=== PATIENT | female | born 1950 | race Caucasian/White ===

== ENCOUNTER 2018-02-25 13:54 | Outpatient (RCR) | payer MEDICARE, BC ==
[~2018-02-25 13:54] MED LIST: AMOX-358 PO; BENA1TAB12 PO; BENZ-36 PO; LANS30CA PO; PRD10T PO
[2018-02-25 14:38] LABS: BASOPHILS % (AUTO) 1 % (0-10); EOSINOPHILS # (AUTO) 0.4 10^3/uL (0.0-0.3); EOSINOPHILS % (AUTO) 6 % (0-10); HEMATOCRIT 44 % (35-52); HEMOGLOBIN 14.7 G/DL (11.5-16.0); LYMPHOCYTES # (AUTO) 1.9 X 10^3 (1.0-4.0); LYMPHOCYTES % (AUTO) 30 % (12-44); MEAN CORPUSCULAR HEMOGLOBIN 28 PG (25-34); MEAN CORPUSCULAR HGB CONC 34 G/DL (32-36); MEAN CORPUSCULAR VOLUME 85 FL (80-99); MEAN PLATELET VOLUME 10.8 FL (7.4-10.4); MONOCYTES # (AUTO) 0.6 X 10^3 (0.0-1.0); MONOCYTES % (AUTO) 10 % (0-12); NEUTROPHILS # (AUTO) 3.4 X 10^3 (1.8-7.8); NEUTROPHILS % (AUTO) 53 % (42-75); PLATELET COUNT 245 10^3/uL (130-400); RED BLOOD COUNT 5.18 10^6/uL (4.35-5.85); RED CELL DISTRIBUTION WIDTH 14.4 % (10.0-14.5); WHITE BLOOD COUNT 6.5 10^3/uL (4.3-11.0)
[2018-02-25 15:02] LABS: ALBUMIN 4.3 GM/DL (3.2-4.5); BILIRUBIN,TOTAL 0.3 MG/DL (0.1-1.0); CALCIUM 9.9 MG/DL (8.5-10.1); CREATININE SERUM 0.94 MG/DL (0.60-1.30); POTASSIUM 3.7 MMOL/L (3.6-5.0); TOTAL PROTEIN 7.5 GM/DL (6.4-8.2)
== END 2018-05-26 | disposition home or self-care (01) ==
LOC: ONC 13:54
PROVIDERS: ATTEND Internal Medicine Hematology & Oncology
DX: R79.89 Other specified abnormal findings of blood chemistry (principal); K21.9 Gastro-esophageal reflux disease without esophagitis; H01.12 Discoid lupus erythematosus of eyelid; I10 Essential (primary) hypertension; F41.9 Anxiety disorder, unspecified
CPT/HCPCS: 36415; 80053; 85025

== ENCOUNTER 2018-06-29 11:08 | Emergency (ER) | payer MEDICARE, BC ==
[~2018-06-29] VITALS: Ht 149.9 cm; Wt 68.5 kg
--- OUTSIDE RECORDS SUMMARY | 2018-06-29 11:13 | XMS REPORT | Continuity of Care Document ---
Author Author [facility] Organization [facility] Address Unknown Phone Unavailable Allergies Active Description Code Type Severity Reaction Onset Reported/Identified Relationship to Patient Clinical Status Yes HORMONES HORMONES Unknown BLOOD PRESSURE 01/25/2012 Yes Sulfa (Sulfonamide Antibiotics) [id number] Drug Allergy Unknown N/A 2011 Medications There is no data. 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, 04/09/2018 VICKI ALLAN MD Ot I10 ESSENTIAL (PRIMARY) HYPERTENSION 04/09/2018 VICKI ALLAN MD Ot K21.9 GASTRO-ESOPHAGEAL REFLUX DISEASE WITHOUT 04/09/2018 VICKI ALLAN MD Ot R79.89 OTHER SPECIFIED ABNORMAL FINDINGS OF BLO 05/26/2018 VICKI ALLAN MD Ot F41.9 ANXIETY DISORDER, UNSPECIFIED 05/26/2018 VICKI ALLAN MD Ot 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, 05/26/2018 VICKI ALLAN MD Ot I10 ESSENTIAL (PRIMARY) HYPERTENSION 05/26/2018 VICKI ALLAN MD Ot K21.9 GASTRO-ESOPHAGEAL REFLUX DISEASE WITHOUT 05/26/2018 VICKI ALLAN MD Ot R79.89 OTHER SPECIFIED ABNORMAL FINDINGS OF BLO 05/28/2018 VICKI ALLAN MD, Ot F41.9 ANXIETY DISORDER, UNSPECIFIED 05/28/2018 VICKI ALLAN MD, Ot 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 Results There is no data. Encounters ACCT No. Visit Date/Time Discharge Status Pt. Type Provider Facility Loc./Unit Complaint [id number] 05/27/2018 00:10:00 05/27/2018 23:59:59 CLS Preadmit VICKI ALLAN MD [facility] ONC [id number] 02/25/2018 13:54:00 05/26/2018 00:01:00 DIS Outpatient VICKI ALLAN MD [facility] ONC [id number] 10/12/2015 20:50:00 10/12/2015 22:59:00 DIS Emergency HARMONY FU DO [facility] ER [id number] 02/15/2012 13:49:00 Document Registration [id number] 01/25/2012 22:08:00 Document Registration
[2018-06-29] MEDS ORDERED: BENA1TAB14 (11:34)
[2018-06-29] MEDS ORDERED: ALPR0.5T7 (11:34)
--- NOTE | 2018-06-29 11:36 | ED EENT ---
History of Present Illness General Chief Complaint: Oral/Throat Problems Stated Complaint: LEFT SIDE MOUTH PAIN Source: patient Exam Limitations: no limitations History of Present Illness Date Seen by Provider: Jun 29, 2018 Time Seen by Provider: 11:34 Initial Comments To ER with reports of left-sided mouth pain this began intermittently a few weeks ago. No fevers or chills. She was initially seen at urgent care who believe this to be a swollen lymph node and she was given a shot of steroids. No improvement so she followed up with her primary care provider Dr. Becker who told her she likely had a salivary gland stone, told her to massage the area and gave another shot of steroids she states, this was on 06/27/18. Today, the pain has increased to an 8 or 9 out of 10. She denies any fevers or chills. States that the pain and swelling increases with eating Timing/Duration: abrupt Severity: moderate Location: mouth, facial Allergies and Home Medications Allergies Coded Allergies: Sulfa (Sulfonamide Antibiotics) (Verified Allergy, Unknown, 01/25/12) Uncoded Allergies: HORMONES (Allergy, Unknown, BLOOD PRESSURE GOES CRAZY, 01/25/12) Home Medications Benazepril Hcl 1 Each Tablet, 1 EACH PO DAILY, (Reported) Benzonatate 100 Mg Capsule, 100 MG PO TID PRN for COUGH, (Reported) Clindamycin HCl 300 Mg Capsule, 300 MG PO TID Prescribed by: FIDENCIO DUQUE on 06/29/18 1227 Hydrocodone/Acetaminophen 1 Each Tablet, 1 EACH PO Q4H PRN for PAIN-MODERATE TO SEVERE Prescribed by: FIDENCIO DQUUE on 06/29/18 1227 Patient Home Medication List Home Medication List Reviewed: Yes Review of Systems Constitutional: see HPI Eyes: No Symptoms Reported Ears: No Symptoms Reported Nose: no symptoms reported Mouth: see HPI, pain, swelling Throat: no symptoms reported Respiratory: no symptoms reported Cardiovascular: no symptoms reported Musculoskeletal: no symptoms reported Skin: no symptoms reported Neurological: No Symptoms Reported Hematologic/Lymphatic: No Symptoms Reported Immunological/Allergic: no symptoms reported Past Uczvguw-Vwuxsj-Raohnn Hx Patient Social History Alcohol Use: Denies Use Recreational Drug Use: No Smoking Status: Never a Smoker Recent Foreign Travel: No Contact w/Someone Who Travel: No Immunizations Up To Date Date of Influenza Vaccine: Sep 21, 2015 Past Medical History Surgeries: Yes Gallbladder, Tubal Ligation Respiratory: No Cardiac: Yes Hypertension 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 oz. 67.235265sj; BMI Method: General Appearance: WD/WN, no apparent distress Eyes: bilateral eye normal inspection, bilateral eye PERRL Ears: bilateral ear auricle normal, bilateral ear canal normal Mouth/Throat: other (left-sided submandibular swelling, inflamed appearance of the left [place]'s duct and a palpable firm nodule just proximal to the [place]' s duct. In milking this gland I was able to express some purulent material. ) Neck: non-tender, full range of motion Respiratory: no respiratory distress, no accessory muscle use Neurologic/Psychiatric: alert, normal mood/affect, oriented x 3 Skin: normal color, warm/dry Progress/Results/Core Measures Results/Orders Lab Results Laboratory Tests Test 06/29/18 12:00 Range/Units White Blood Count 13.0 H 4.3-11.0 10^3/uL Red Blood Count 5.35 4.35-5.85 10^6/uL Hemoglobin 15.2 11.5-16.0 G/DL Hematocrit 45 35-52 % Mean Corpuscular Volume 84 80-99 FL Mean Corpuscular Hemoglobin 28 25-34 PG Mean Corpuscular Hemoglobin Concent 34 32-36 G/DL Red Cell Distribution Width 14.6 H 10.0-14.5 % Platelet Count 310 130-400 10^3/uL Mean Platelet Volume 10.4 7.4-10.4 FL Neutrophils (%) (Auto) 76 H 42-75 % Lymphocytes (%) (Auto) 16 12-44 % Monocytes (%) (Auto) 7 0-12 % Eosinophils (%) (Auto) 1 0-10 % Basophils (%) (Auto) 0 0-10 % Neutrophils # (Auto) 9.9 H 1.8-7.8 X 10^3 Lymphocytes # (Auto) 2.1 1.0-4.0 X 10^3 Monocytes # (Auto) 0.9 0.0-1.0 X 10^3 Eosinophils # (Auto) 0.1 0.0-0.3 10^3/uL Basophils # (Auto) 0.0 0.0-0.1 10^3/uL Sodium Level 137 135-145 MMOL/L Potassium Level 3.8 3.6-5.0 MMOL/L Chloride Level 103 98-107 MMOL/L Carbon Dioxide Level 21 21-32 MMOL/L Anion Gap 13 5-14 MMOL/L Blood Urea Nitrogen 21 H 7-18 MG/DL Creatinine 0.92 0.60-1.30 MG/DL Estimat Glomerular Filtration Rate > 60 BUN/Creatinine Ratio 23 Glucose Level 126 H 70-105 MG/DL Calcium Level 9.7 8.5-10.1 MG/DL My Orders Orders - FIDENCIO DUQUE APRN Cbc With Automated Diff (06/29/18 11:33) Basic Metabolic Panel (06/29/18 11:33) Iv Heplock-Insert (Order) (06/29/18 11:33) Ct Neck (Soft Tissue) W (06/29/18 11:33) Clindamycin 900 Mg/50 Ml Ivpb (Cleocin P (06/29/18 11:45) Fentanyl Injection (Sublimaze Injection (06/29/18 11:45) Iohexol Injection (Omnipaque 350 Mg/Ml 1 (06/29/18 12:00) Ns (Ivpb) (Sodium Chloride 0.9% Ivpb Bag (06/29/18 12:00) Fentanyl Injection (Sublimaze Injection (06/29/18 13:30) Medications Given in ED Current Medications Medications Dose Ordered Sig/Mickey Route Start Time Stop Time Status Last Admin Dose Admin Clindamycin Phosphate/Dextrose 50 ml @ 100 mls/hr ONCE ONCE IV 06/29/18 11:45 06/29/18 12:14 DC 06/29/18 12:07 100 MLS/HR Fentanyl Citrate 50 mcg ONCE ONCE IVP 06/29/18 11:45 06/29/18 11:46 DC 06/29/18 11:59 50 MCG Fentanyl Citrate 50 mcg ONCE ONCE IVP 06/29/18 13:30 06/29/18 13:31 DC 06/29/18 13:30 50 MCG Iohexol 75 ml ONCE ONCE IV 8/11/18 12:00 06/29/18 12:01 DC 06/29/18 13:00 75 ML Sodium Chloride 100 ml ONCE ONCE IV 06/29/18 12:00 06/29/18 12:01 DC 06/29/18 13:01 100 ML Vital Signs/I&O 06/29/18 11:18 Temp 98.4 Pulse 69 Resp 18 B/P (MAP) 176/82 (113) Pulse Ox 98 O2 Delivery Room Air Diagnostic Imaging Diagonstic Imaging: CT Comments NAME: LORRI LYON [facility] REC#: [id number] PT STATUS: REG ER : 1950 PHYSICIAN: FIDENCIO DUQUE APRN ADMIT DATE: 06/29/18/ER Draft Date of Exam:06/29/18 CT NECK (SOFT TISSUE) W PROCEDURE: CT neck soft tissue with contrast. TECHNIQUE: Multiple contiguous axial images were obtained through the neck after the administration of contrast. INDICATION: Neck mass, possible sialolith. COMPARISON: None. FINDINGS: The marker was placed in the left lateral anterior neck in the area of interest. A marker overlies asymmetrically slightly larger left submandibular gland. This could be related to a slight inflammation. The right submandibular gland is normal. There is a sialolith in the anterior aspect of the floor of the mouth on the left measuring 5 mm. There is resultant dilation of the left sublingual duct. No additional abnormalities seen. Vascular structures, skull base anatomy and lung apices are normal. The sinuses are clear. Central airways normal. Impression: 5 mm sialolith in the anterior aspect of the floor of the mouth with resultant dilated salivary duct and and prominence and enlargement of the left submandibular gland compared to the right. No abscess or neoplasm identified. Dictated on workstation # [id number] Dict: 06/29/18 1311 Trans: 06/29/18 1323 [facility] [id number] Interpreted by: EDUAR LARKIN Electronically signed by: Departure Communication (Admissions) I spoke with Dudley CUEVA, nurse practitioner with Dr. Lyon from ear nose and throat. She agrees with clindamycin outpatient pain medication, plenty of fluids and lemon drops. They'll see her in the office next week. I didn't notice it today Impression Primary Impression: Sialoadenitis of submandibular gland Disposition: HOME, SELF-CARE Condition: Stable Departure-Patient Inst. Decision time for Depature: 12:25 Referrals: KARY LYON MD, MARK D MD (PCP/Family) Primary Care Physician Patient Instructions: Salivary Gland Infection (DC) Add. Discharge Instructions: 1. REturn to ER for any intolerable pain, fevers or other concerns 2. Call Dr Lyon sunday to make an appointment to be seen, preferrably next week All discharge instructions reviewed with patient and/or family. Voiced understanding. Scripts Hydrocodone/Acetaminophen ([place] 5-325 Tablet) 1 Each Tablet 1 EACH PO Q4H PRN for PAIN-MODERATE TO SEVERE, #14 TAB Prov: FIDENCIO DUQUE APRN 06/29/18 Clindamycin HCl (Clindamycin HCl) 300 Mg Capsule 300 MG PO TID, #21 CAP Prov: FIDENCIO DUQUE APRN 06/29/18 Copy Copies To 1: KARY LYON MD; IRENA BECKER MD, PETER J APRN Jun 29, 2018 11:36
[2018-06-29] MEDS ORDERED: fentaNYL INJECTION 100 MCG/2 ML AMP IVP ONE ×2 (11:45→13:30)
[2018-06-29] MEDS ORDERED: CLINDAMYCIN 900 MG/50 ML IVPB 50 ML IV ONE (11:45)
[2018-06-29] MEDS ORDERED: NS 100 ML (IVPB) BAG IV ONE (12:00)
[2018-06-29] MEDS ORDERED: IOHEXOL 350 MG/ML 100 ML (OMNIPAQUE 350) VIAL IV ONE (12:00)
[2018-06-29 12:09] LABS: BASOPHILS % (AUTO) 0 % (0-10); EOSINOPHILS # (AUTO) 0.1 10^3/uL (0.0-0.3); EOSINOPHILS % (AUTO) 1 % (0-10); HEMATOCRIT 45 % (35-52); HEMOGLOBIN 15.2 G/DL (11.5-16.0); LYMPHOCYTES # (AUTO) 2.1 X 10^3 (1.0-4.0); LYMPHOCYTES % (AUTO) 16 % (12-44); MEAN CORPUSCULAR HEMOGLOBIN 28 PG (25-34); MEAN CORPUSCULAR HGB CONC 34 G/DL (32-36); MEAN CORPUSCULAR VOLUME 84 FL (80-99); MEAN PLATELET VOLUME 10.4 FL (7.4-10.4); MONOCYTES # (AUTO) 0.9 X 10^3 (0.0-1.0); MONOCYTES % (AUTO) 7 % (0-12); NEUTROPHILS # (AUTO) 9.9 X 10^3 (1.8-7.8); NEUTROPHILS % (AUTO) 76 % (42-75); PLATELET COUNT 310 10^3/uL (130-400); RED BLOOD COUNT 5.35 10^6/uL (4.35-5.85); RED CELL DISTRIBUTION WIDTH 14.6 % (10.0-14.5)
[2018-06-29 12:24] LABS: BUN/CREATININE RATIO 23; CALCIUM 9.7 MG/DL (8.5-10.1); CARBON DIOXIDE 21 MMOL/L (21-32); CHLORIDE 103 MMOL/L (98-107); CREATININE SERUM 0.92 MG/DL (0.60-1.30); GFR ESTIMATED > 60; GLUCOSE 126 MG/DL (70-105); POTASSIUM 3.8 MMOL/L (3.6-5.0); SODIUM 137 MMOL/L (135-145)
[2018-06-29] MEDS ORDERED: CLIN300C11 PO (12:27)
[2018-06-29] MEDS ORDERED: HYDR-757 PO (12:27)
--- NOTE | 2018-06-29 13:24 | Diagnostic Imaging Report ---
PROCEDURE: CT neck soft tissue with contrast. TECHNIQUE: Multiple contiguous axial images were obtained through the neck after the administration of contrast. INDICATION: Neck mass, possible sialolith. COMPARISON: None. FINDINGS: The marker was placed in the left lateral anterior neck in the area of interest. A marker overlies asymmetrically slightly larger left submandibular gland. This could be related to a slight inflammation. The right submandibular gland is normal. There is a sialolith in the anterior aspect of the floor of the mouth on the left measuring 5 mm. There is resultant dilation of the left sublingual duct. No additional abnormalities seen. Vascular structures, skull base anatomy and lung apices are normal. The sinuses are clear. Central airways normal. Impression: 5 mm sialolith in the anterior aspect of the floor of the mouth with resultant dilated salivary duct and and prominence and enlargement of the left submandibular gland compared to the right. No abscess or neoplasm identified. Dictated by: Dictated on workstation # [id number]
[2018-06-29 13:47] VITALS: BP 143/62
== END 2018-06-29 13:47 | disposition home or self-care (01) ==
LOC: EDUNIT# 11:08 → ER 11:10
DX: K11.20 Sialoadenitis, unspecified (principal); I10 Essential (primary) hypertension; K21.9 Gastro-esophageal reflux disease without esophagitis; Z88.2 Allergy status to sulfonamides; Z88.8 Allergy status to other drugs, medicaments and biological substances; Z98.51 Tubal ligation status
CPT/HCPCS: 36415; 70491; 80048; 85025; 96365; 96375; 96376; 99282

== ENCOUNTER 2019-09-09 08:00 | Outpatient (RCR) | payer MEDICARE, BC ==
[~2019-09-09 08:00] MED LIST changes: +ALPR0.5T7 PO; +BENA1TAB14; +BIFI1CAP PO; +CALC-823 PO; +CEFU250T80 PO; +CLIN300C11 PO; +HYDR-3812 PO; +HYDR-4226 PO; +NF-MAG64T PO; +OMEP20TA7 PO
== END 2019-09-10 | disposition home or self-care (01) ==
LOC: CR3 08:00
PROVIDERS: ATTEND Internal Medicine
DX: Z29.8 Encounter for other specified prophylactic measures (principal)

== ENCOUNTER 2019-10-08 08:27 | Outpatient (RCR) | payer MEDICARE, BC | END 2019-10-15 | disposition home or self-care (01) | LOC: CR3 08:27 | PROVIDERS: ATTEND Internal Medicine | DX: Z29.8 Encounter for other specified prophylactic measures (principal) ==

== ENCOUNTER 2019-11-05 10:58 | Outpatient (RCR) | payer MEDICARE, BC | END 2019-11-19 | disposition home or self-care (01) | LOC: CR3 10:58 | PROVIDERS: ATTEND Internal Medicine | DX: Z29.8 Encounter for other specified prophylactic measures (principal) ==

== ENCOUNTER 2019-12-03 08:25 | Outpatient (RCR) | payer MEDICARE, BC | END 2019-12-18 | disposition home or self-care (01) | LOC: CR3 08:25 | PROVIDERS: ATTEND Internal Medicine | DX: Z29.8 Encounter for other specified prophylactic measures (principal) ==

== ENCOUNTER 2020-01-21 10:28 | Outpatient (RCR) | payer MEDICARE, BC ==
[~2020-01-21 10:28] MED LIST changes: +ACHD5005 PO; -HYDR-3812 PO
== END 2020-01-22 | disposition home or self-care (01) ==
LOC: CR3 10:28
PROVIDERS: ATTEND Internal Medicine
DX: Z29.8 Encounter for other specified prophylactic measures (principal)

== ENCOUNTER 2020-01-30 09:26 | Outpatient (RCR) | payer MEDICARE, BC | END 2020-02-22 | disposition home or self-care (01) | LOC: CR3 09:26 | PROVIDERS: ATTEND Internal Medicine | DX: Z29.8 Encounter for other specified prophylactic measures (principal) ==

== ENCOUNTER 2021-02-28 09:09 | Outpatient (RCR) | payer MEDICARE, BC ==
[~2021-02-28 09:09] MED LIST changes: -CLIN300C11 PO; +CLIN300C12 PO
== END 2021-03-02 | disposition home or self-care (01) ==
LOC: CR3 09:09
PROVIDERS: ATTEND Internal Medicine
DX: Z29.8 Encounter for other specified prophylactic measures (principal)

== ENCOUNTER 2021-03-18 09:09 | Outpatient (RCR) | payer MEDICARE, BC | END 2021-04-03 | disposition home or self-care (01) | LOC: CR3 09:09 | PROVIDERS: ATTEND Internal Medicine | DX: Z29.8 Encounter for other specified prophylactic measures (principal) ==

== ENCOUNTER → 2021-09-29 | Outpatient (CLI) | payer MEDICARE, BC ==
[~2021-09-29] MED LIST changes: +CATHETER FLUSH 10 ML SYR IV PRN; +CLIN-144 PO; -CLIN300C12 PO; +HOLD METFORMIN - RECEIVED CONTRAST 20 ML VIAL IV SCH; +IOHEXOL 350 MG/ML 100 ML (OMNIPAQUE 350) VIAL IV ONE; +NS 100 ML (IVPB) BAG IV ONE
--- NOTE | 2021-09-29 15:11 | Diagnostic Imaging Report ---
PROCEDURE: CT chest with contrast, CT abdomen with and without contrast. TECHNIQUE: Precontrast acquisitions were acquired through the abdomen. Multiple contiguous axial images were obtained through the chest and abdomen after administration of intravenous contrast. Auto Exposure Controls were utilized during the CT exam to meet ALARA standards for radiation dose reduction. INDICATION: Nausea, history of biliary disease. I have no priors. FINDINGS: CHEST: There is no focal pulmonary consolidation. There were no findings of pneumonia or edema. There is some trace lingular segmental juxta-fissural subsegmental atelectasis. There is no axillary, hilar, or mediastinal lymphadenopathy. The aorta is patent, nonaneurysmal, and nonacute. There is no pleural or pericardial effusion no chest wall pathology. ABDOMEN: The gallbladder is surgically absent. The liver parenchyma appeared normal. There is no bile duct dilatation. No stone within the nondilated extrahepatic bile duct. The pancreas, its duct, and the peripancreatic fat appeared unremarkable. Spleen and adrenals are negative. There are dense aortic atherosclerotic vascular calcifications without aneurysm, dissection, occlusion, or focal stenosis. The celiac, the superior mesenteric, and the inferior mesenteric arteries as well as their visualized primary branches are unremarkable. There were no findings of acute solid or hollow visceral end organ involvement by ischemia. Unobstructed kidneys appeared normal. There is no mesenteric or retroperitoneal adenopathy. There is no ascites, abscess, hematoma, or acute fluid collection. No pneumatosis or free air. IMPRESSION: Unremarkable CT chest and abdomen with nonaneurysmal atherosclerosis and previous surgical changes. No acute or suspicious finding evident. Dictated by: Dictated on workstation # [id number]
== END ==
LOC: RAD 12:45
PROVIDERS: ATTEND Nurse Practitioner Family
DX: I25.10 Atherosclerotic heart disease of native coronary artery without angina pectoris (principal); M54.6 Pain in thoracic spine; R10.9 Unspecified abdominal pain; Z98.890 Other specified postprocedural states
CPT/HCPCS: 71260; 74170; 93005

== ENCOUNTER → 2021-10-19 | Outpatient (RCR) | payer MEDICARE, BC ==
[~2021-10-19] MED LIST changes: -CATHETER FLUSH 10 ML SYR IV PRN; -HOLD METFORMIN - RECEIVED CONTRAST 20 ML VIAL IV SCH; -IOHEXOL 350 MG/ML 100 ML (OMNIPAQUE 350) VIAL IV ONE; -NS 100 ML (IVPB) BAG IV ONE
== END | disposition home or self-care (01) ==
LOC: CR3 09-19 11:26
PROVIDERS: ATTEND Internal Medicine
DX: Z29.8 Encounter for other specified prophylactic measures (principal)

== ENCOUNTER 2021-12-16 08:50 | Outpatient (RCR) | payer MEDICARE, BC | END 2021-12-18 | disposition home or self-care (01) | LOC: CR3 08:50 | PROVIDERS: ATTEND Internal Medicine | DX: Z29.8 Encounter for other specified prophylactic measures (principal) ==

== ENCOUNTER 2022-01-16 09:05 | Outpatient (RCR) | payer MEDICARE, BC | END 2022-01-18 | disposition home or self-care (01) | LOC: CR3 09:05 | PROVIDERS: ATTEND Internal Medicine | DX: Z29.8 Encounter for other specified prophylactic measures (principal) ==

== ENCOUNTER 2022-02-17 09:15 | Outpatient (RCR) | payer MEDICARE, BC ==
[~2022-02-17 09:15] MED LIST changes: +OMEP20TA56 PO; -OMEP20TA7 PO
== END 2022-03-18 | disposition home or self-care (01) ==
LOC: CR3 09:15
PROVIDERS: ATTEND Internal Medicine
DX: Z29.8 Encounter for other specified prophylactic measures (principal)

== ENCOUNTER 2022-05-01 11:17 | Emergency (ER) | payer MEDICARE, BC ==
[~2022-05-01] VITALS: Ht 157.4 cm; Wt 65.8 kg
--- NOTE | 2022-05-01 11:27 | ED Lower Extremity ---
General Stated Complaint: FALL - R FOOT AND ANKLE PAIN Source: patient Exam Limitations: no limitations History of Present Illness Date Seen by Provider: May 01, 2022 Time Seen by Provider: 11:22 Initial Comments Patient is a 71-year-old female who presents to the emergency department with a chief complaint of injury to her right foot approximately an hour prior to arrival. She was walking outside after watering plants and went to step down off of a couple of steps slipped and twisted her right ankle. She states she was able to bear weight immediately after this injury however after she got in and out of the bathtub she states her foot hurts so bad at the instep and at the lateral aspect of her foot that she could not bear weight. She has been icing it and elevating it and decided to come to the emergency room due to increased pain. She did not fall, no other injury sustained. Onset: just prior to arrival (1 hour) Pain/Injury Location: right foot Method of Injury: twisted Modifying Factors: Improves With Immobilization; Worse With Movement; Improves With Rest Allergies and Home Medications Allergies Coded Allergies: Sulfa (Sulfonamide Antibiotics) (Verified Allergy, Unknown, 01/25/12) Uncoded Allergies: HORMONES (Allergy, Unknown, BLOOD PRESSURE GOES CRAZY, 01/25/12) Patient Home Medication List Alprazolam (Alprazolam) 0.5 Mg Tablet, 0.5 MG PO BID PRN for ANXIETY, (Reported) Entered as Reported by: SIMON ESPINO on 06/29/18 1134 Benazepril/Hydrochlorothiazide (Benazepril-Hctz 20-12.5 mg Tab) 1 Each Tablet, (Reported) Entered as Reported by: SIMON ESPINO on 06/29/18 1134 Bifidobacterium Infantis (Digestive Probiotic) 1 Each Capsule, 1 EACH PO DAILY, (Reported) Entered as Reported by: MELY CALVO on 07/09/18 1335 Calcium Carbonate (Calcium) 500 Mg Tablet, 500 MG PO BID, (Reported) Entered as Reported by: MELY CALVO on 07/09/18 1335 Cefuroxime Axetil (Cefuroxime) 250 Mg Tablet, 250 MG PO BID, (Reported) Entered as Reported by: MELY CALVO on 07/09/18 1335 Cefuroxime Axetil (Cefuroxime) 250 Mg Tablet, 250 MG PO BID Prescribed by: JAMES SWEENEY on 07/11/18 09 Hydrocodone Bit/Acetaminophen (Lortab 5 Mg Tablet) 1 Each Tablet, 1 EACH PO Q4H PRN for pain Prescribed by: JAMES SWEENEY on 07/11/18 09 Hydrocodone/Acetaminophen (Hydrocodone-Acetamin 5-325 mg) 5 Mg-325 Mg Tablet, 1 TAB PO Q6H PRN for PAIN-MODERATE (5-7) Prescribed by: CHRISTOPHER YOUSSEF on 05/01/22 1239 Magnesium Chloride (Slow-Mag) 64 Mg Tab, 64 MG PO DAILY, (Reported) Entered as Reported by: MELY CALVO on 07/09/18 1335 Omeprazole (Omeprazole) 20 Mg Tablet.dr, 20 MG PO DAILY, (Reported) Entered as Reported by: MELY CALVO on 07/09/18 1335 Past Nswozdq-Puficp-Beiood Hx Seasonal Allergies Seasonal Allergies: Yes Past Medical History Surgeries: Yes Gallbladder, Tubal Ligation Respiratory: No Cardiac: Yes Hypertension Neurological: No [employer] History: Tubal Ligation Gastrointestinal: Yes Gastroesophageal Reflux, Irritable Bowel Musculoskeletal: No Endocrine: No Cancer: No Psychosocial: No Integumentary: No Physical Exam Vital Signs Vital Signs - First Documented 05/01/22 11:27 Temp 35.8 Pulse 84 Resp 18 B/P (MAP) 151/80 (103) Pulse Ox 96 O2 Delivery Room Air Capillary Refill : Height, Weight, BMI Height: 4'11.00" Weight: 153lbs. 0.0oz. 69.195815fh; 30.9 BMI Method:Stated Progress/Results/Core Measures Results/Orders My Orders Orders - CHRISTOPHER YOUSSEF MD Foot, Right, 3 View (05/01/22 11:27) Acetaminophen Tablet (Tylenol Tablet) (05/01/22 12:45) Vital Signs/I&O 05/01/22 11:27 Temp 35.8 Pulse 84 Resp 18 B/P (MAP) 151/80 (103) Pulse Ox 96 O2 Delivery Room Air Diagnostic Imaging Diagonstic Imaging: Xray Comments right foot xray: no fracture - interpreted by me [facility] [place] NAME: LORRI SABILLON [facility] REC#: [id number] PT STATUS: REG ER : 1950 PHYSICIAN: CHRISTOPHER YOUSSEF MD ADMIT DATE: 05/01/22/ER Draft Date of Exam:05/01/22 FOOT, RIGHT, 3 VIEW INDICATION: Twisting injury with pain. FINDINGS: Three-view right foot showed no fracture, dislocation, or acute appearing articular incongruity. In particular, the base of the fifth metatarsal appeared intact. There is plantar calcaneal spurring as well as some enthesopathy at the Achilles insertion. An ossicle proximal to the medial margin of the dorsal navicular is chronic. IMPRESSION: No fracture or acute abnormality identified. Dictated on workstation # [id number] Dict: 05/01/22 1245 Trans: 05/01/22 1248 [id number] Interpreted by: RICO TABARES Electronically signed by: Departure Impression Primary Impression: Right foot sprain Qualified Codes: S93.601A - Unspecified sprain of right foot, initial encounter Disposition: HOME, SELF-CARE Condition: Stable Departure-Patient Inst. Decision time for Depature: 12:38 Referrals: IRENA NIÑO MD (PCP/Family) Primary Care Physician Add. Discharge Instructions: Keep it wrapped for comfort and use the crutches for stability. Try and start bearing more weight on the foot in a couple of days. Keep the foot elevated to lessen swelling. Tylenol extra stregth every 6 hours as needed for pain. I have also prescribed you some hydrocodone for pain this contains tylenol as well. This medication can cause constipation, drink extra water and use stool softeners if you are having to take it. Follow up with your primary care provider. Return to the Emergency Department for any new, concerning or emergent complaints. Scripts Hydrocodone/Acetaminophen (Hydrocodone-Acetamin 5-325 mg) 5 Mg-325 Mg Tablet 1 TAB PO Q6H PRN for PAIN-MODERATE (5-7), #10 TAB Prov: CHRISTOPHER YOUSSEF MD 05/01/22 Copy Copies To 1: IRENA NIÑO MD, KATHRYN M MD May 01, 2022 11:27
[2022-05-01] MEDS ORDERED: ACHD5005 PO (12:39)
[2022-05-01] MEDS ORDERED: ACETAMINOPHEN 500 MG TAB (TYLENOL) PO ONE (12:45)
--- NOTE | 2022-05-01 12:48 | Diagnostic Imaging Report ---
INDICATION: Twisting injury with pain. FINDINGS: Three-view right foot showed no fracture, dislocation, or acute appearing articular incongruity. In particular, the base of the fifth metatarsal appeared intact. There is plantar calcaneal spurring as well as some enthesopathy at the Achilles insertion. An ossicle proximal to the medial margin of the dorsal navicular is chronic. IMPRESSION: No fracture or acute abnormality identified. Dictated by: Dictated on workstation # [id number]
[2022-05-01 13:05] VITALS: BP 144/73
== END 2022-05-01 12:54 | disposition home or self-care (01) ==
LOC: EDUNIT# 11:17 → ER 11:19
DX: S93.601A Unspecified sprain of right foot, initial encounter (principal); W10.9XXA Fall (on) (from) unspecified stairs and steps, initial encounter; X50.1XXA Overexertion from prolonged static or awkward postures, initial encounter
CPT/HCPCS: 73630

== ENCOUNTER → 2022-11-23 | Outpatient (CLI) | payer BC, MEDICARE, OTHER ==
[2022-11-23 12:07] LABS: BASOPHILS # (AUTO) 0.1 10^3/uL (0.0-0.1); BASOPHILS % (AUTO) 1 % (0-10); EOSINOPHILS # (AUTO) 0.1 10^3/uL (0.0-0.3); EOSINOPHILS % (AUTO) 2 % (0-10); HEMATOCRIT 47 % (35-52); HEMOGLOBIN 15.5 g/dL (11.5-16.0); LYMPHOCYTES # (AUTO) 1.6 10^3/uL (1.0-4.0); LYMPHOCYTES % (AUTO) 28 % (12-44); MEAN CORPUSCULAR HEMOGLOBIN 28 pg (25-34); MEAN CORPUSCULAR HGB CONC 33 g/dL (32-36); MEAN CORPUSCULAR VOLUME 86 fL (80-99); MEAN PLATELET VOLUME 10.4 fL (9.0-12.2); MONOCYTES # (AUTO) 0.4 10^3/uL (0.0-1.0); MONOCYTES % (AUTO) 7 % (0-12); NEUTROPHILS # (AUTO) 3.7 10^3/uL (1.8-7.8); NEUTROPHILS % (AUTO) 62 % (42-75); PLATELET COUNT 255 10^3/uL (130-400)
[2022-11-23 12:27] LABS: ALBUMIN 4.3 GM/DL (3.2-4.5); BILIRUBIN,TOTAL 0.3 MG/DL (0.1-1.0); CALCIUM 9.8 MG/DL (8.5-10.1); CREATININE SERUM 0.9 MG/DL (0.60-1.30); TOTAL PROTEIN 7.8 GM/DL (6.4-8.2)
== END ==
LOC: LAB 11:47
PROVIDERS: ATTEND Internal Medicine
DX: R63.4 Abnormal weight loss (principal); R10.84 Generalized abdominal pain
CPT/HCPCS: 36415; 80053; 83690; 85025

== ENCOUNTER → 2023-10-27 | Outpatient (CLI) | payer MEDICARE ==
--- NOTE | 2023-10-27 12:20 | Diagnostic Imaging Report ---
INDICATION: PNEUMONIA ACUTE COUGH SOB PERSONAL HISTORY OF COVID19. TECHNIQUE: Two view chest 12:17 PM CORRELATION STUDY: 10/12/2015 FINDINGS: The heart size, mediastinal configuration and pulmonary vasculature are within normal limits. The lungs are clear with no consolidating infiltrate. There is no significant pleural effusion or pneumothorax. Visualized osseous structures are unremarkable. IMPRESSION: 1. Negative for acute abnormality of the chest. Dictated by: Dictated on workstation # [id number]
[2023-10-27 12:27] LABS: BASOPHILS # (AUTO) 0.1 10^3/uL (0.0-0.1); BASOPHILS % (AUTO) 1 % (0-10); EOSINOPHILS # (AUTO) 0.2 10^3/uL (0.0-0.3); EOSINOPHILS % (AUTO) 3 % (0-10); HEMATOCRIT 47 % (35-52); HEMOGLOBIN 15.6 g/dL (11.5-16.0); LYMPHOCYTES # (AUTO) 2.5 10^3/uL (1.0-4.0); LYMPHOCYTES % (AUTO) 33 % (12-44); MEAN CORPUSCULAR HEMOGLOBIN 29 pg (25-34); MEAN CORPUSCULAR HGB CONC 34 g/dL (32-36); MEAN CORPUSCULAR VOLUME 87 fL (80-99); MEAN PLATELET VOLUME 10.3 fL (9.0-12.2); MONOCYTES # (AUTO) 0.5 10^3/uL (0.0-1.0); MONOCYTES % (AUTO) 7 % (0-12); NEUTROPHILS # (AUTO) 4.3 10^3/uL (1.8-7.8); NEUTROPHILS % (AUTO) 56 % (42-75); PLATELET COUNT 302 10^3/uL (130-400); WHITE BLOOD COUNT 7.6 10^3/uL (4.3-11.0)
[2023-10-27 12:37] LABS: ALBUMIN 4.3 GM/DL (3.2-4.5); POTASSIUM 3.9 MMOL/L (3.6-5.0)
[2023-10-27 12:40] LABS: TOTAL PROTEIN 8.2 GM/DL (6.4-8.2)
[2023-10-27 12:41] LABS: BILIRUBIN,TOTAL 0.3 MG/DL (0.1-1.0)
[2023-10-27 12:43] LABS: CREATININE SERUM 0.84 MG/DL (0.60-1.30)
== END ==
LOC: LAB 12:01
PROVIDERS: ATTEND Nurse Practitioner Family
DX: J16.8 Pneumonia due to other specified infectious organisms (principal); I10 Essential (primary) hypertension; K21.9 Gastro-esophageal reflux disease without esophagitis; K58.2 Mixed irritable bowel syndrome; K58.8 Other irritable bowel syndrome; Z86.16 Personal history of COVID-19
CPT/HCPCS: 36415; 71047; 80053; 85025; 85379; 86738